=== PATIENT | female | born 2000 | race Caucasian/White ===

== ENCOUNTER 2021-07-21 18:40 | Emergency (ER) | payer OTHER ==
[2021-07-21] MEDS ORDERED: ONDANSETRON ODT 4 MG TABLET TL STA (18:52)
[2021-07-21 19:21] LABS: HCG UR QUAL NEGATIVE
[2021-07-21] MEDS ORDERED: KETOROLAC 30 MG/ML VIAL IM STA (19:26)
--- NOTE | 2021-07-21 20:07 | ED Physician Documentation ---
PD HPI HEADACHE - Stated complaint Stated Complaint: HEADACHE/NAUSEA/HBP - Chief complaint Chief Complaint: Neuro - History obtained from History obtained from: Patient - History of Present Illness Location: Back Quality: Throbbing, Aching Associated symptoms: Nausea. No: Fever, Stiff neck, Vomiting, Weakness, Numbness, Syncope, Seizure, Eye pain, Vision changes, Other Improved by: Rest, Dark room, Quiet Worsened by: Light, Noise, Moving Contributing factors: No: Anticoagulated, Possible carbon monoxide, Hypertension, Other, Recent illness, Trauma Similar symptoms before: Diagnosis - Additional information Additional information: 21 yo F w/ pmh of headaches that typically resolve w/ tylenol/motrin or resting in a dark room presents w/ headache since around 3pm. This headache is worse than her typical but was not a thunderclap or severe headache. She had nausea but no vomiting. No vision changes, confusion, ext weakness or paraesthesias, or other neuro changes. She had no fever or neck pain. She didn't attempt any medication. She checked her BP and became concerned because it was 151/100. She states she follows her BP regularly as her parents have htn, and her bp is not usually this high which worried her. Pt recent stopped OCPs on 07/16 after being on them for awhile then subsequently had her menses for the last several days. Review of Systems Constitutional: reports: Reviewed and negative Eyes: reports: Reviewed and negative Ears: reports: Reviewed and negative Nose: reports: Reviewed and negative Throat: reports: Reviewed and negative Cardiac: reports: Reviewed and negative Respiratory: reports: Reviewed and negative GI: reports: Reviewed and negative : reports: Reviewed and negative Skin: reports: Reviewed and negative Musculoskeletal: reports: Reviewed and negative Neurologic: reports: Headache, Reviewed and negative, Other. denies: Generalized weakness, Focal weakness, Numbness, Difficulty speaking, Near syncope, Syncope, Seizure, Confused, Altered mental status, Unresponsive, Head injury, LOC Psychiatric: reports: Reviewed and negative Endocrine: reports: Reviewed and negative Immunocompromised: reports: Reviewed and negative PD PAST MEDICAL HISTORY - Present Medications Home Medications: Ambulatory Orders Medication Instructions Recorded Confirmed No Known Home Medications 07/21/21 07/21/21 - Allergies Allergies/Adverse Reactions: Allergies Allergy/AdvReac Type Severity Reaction Status Date / Time No Known Drug Allergies Allergy Verified 07/21/21 18:44 PD ED PE NORMAL - Vitals Vital signs reviewed: Yes - General General: Alert and oriented X 3, No acute distress, Well developed/nourished - HEENT HEENT: Atraumatic, PERRL, Moist mucous membranes - Neck Neck: Supple, no meningeal sign, No adenopathy - Cardiac Cardiac: RRR, No murmur - Respiratory Respiratory: No respiratory distress, Clear bilaterally - Abdomen Abdomen: Normal bowel sounds, Soft, Non tender, Non distended - Derm Derm: Normal color, Warm and dry, No rash - Extremities Extremities: No deformity, No tenderness to palpate, Normal ROM s pain - Neuro Neuro: Alert and oriented X 3, No motor deficit, No sensory deficit, Normal speech Eye Opening: Spontaneous Motor: Obeys Commands Verbal: Oriented GCS Score: 15 - Psych Psych: Normal mood, Normal affect Results - Vitals Vitals: Vital Signs - 24 hr 07/21/21 07/21/21 18:44 20:12 Temperature 37.0 C 36.9 C Heart Rate 106 H 89 Respiratory 18 17 Rate Blood Pressure 146/97 H 132/79 H O2 Saturation 99 97 - Labs Labs: Laboratory Tests 07/21/21 19:00 Urine HCG, Qual NEGATIVE PD MEDICAL DECISION MAKING - ED course Complexity details: re-evaluated patient, considered differential, d/w patient ED course: 21 yo F presented with headache. Her physical exam was reassuring and there were no focal neuro findings. She appeared comfortable on exam. Her nausea resolved w/ zofran and I discussed options for headache treatment including IM toradol vs IV headache cocktail. Pt elected to try the toradol and had resolution of her headache. I discussed home headache management and supportive measures. I reviewed return precautions. I advised he to follow up w/ PCP regarding BP in 2- 3 weeks and recheck again when feeling better as it was likely elevated 2/2 to not feeling well. Departure - Departure Disposition: 01 Home, Self Care Clinical Impression: Headache Condition: Good Instructions: ED Headache Migraine Comments: You presented with a headache that is consistent with a migraine type headache and I suspect may have been triggered by stopping oral contraception and your menses. It improved with zofran and toradol. You have no acute neurologic changes or signs of a thunderclap headache. Your blood pressure is mildly elevated which is likely due to your discomfort. Please follow up with your primary doctor in 1-2 weeks to recheck your blood pressure when you are feeling better. Please stay well hydrated and ensure plenty of rest. You may take tylenol or motrin as needed if headache recurs. Return to the ER if headache recurs and is not relieved w/ these medications. Discharge Date/Time: 07/21/21 20:13
[2021-07-21 20:13] VITALS: BP 132/79
== END 2021-07-21 20:13 | disposition home or self-care (01) ==
LOC: ED 18:40
DX: R51.9 Headache, unspecified (principal)
CPT/HCPCS: 81025; 96372; 99283; 99284; Q0162

== ENCOUNTER 2023-02-24 10:30 | Outpatient (CLI) | payer OTHER | END 2023-02-24 10:45 | disposition home or self-care (01) | LOC: LAB.N 10:30 | PROVIDERS: ATTEND Nurse Practitioner | DX: R30.0 Dysuria (principal) | CPT/HCPCS: 87077; 87086 ==